=== PATIENT | male | born 1940 | race Caucasian/White ===

== ENCOUNTER 2016-07-16 08:13 | Day surgery (SDC) | payer MEDICARE ==
--- NOTE | 2016-07-09 14:54 | HISTORY AND PHYSICAL E ---
History and Physical NAME: VITOR WILKINSON : 1940 AGE: 76Y ADMITTED: 07/16/2016 ROOM: CHIEF COMPLAINT: Admitted or colonoscopy. HISTORY: Patient known to me since 2003. The patient did have polypectomy 2003 and the polyps were adenoma. At this time, the patient for colon screening. He does have history of severe diverticulosis. I did him 2010 and he did have sessile polyp transverse colon resection. This came back adenoma. The patient's referring physician is Dr. Gilbert. Again, colonoscopy sessile polyp 0.5 cm resected, severe diverticulosis with history of adenoma polyps. The patient did have diverticulosis sigmoid, descending colon, rectal polyps and transverse colon polypectomy. REVIEW OF SYSTEMS: CARDIAC: Hypertension. ENDOCRINE: Negative. GASTROINTESTINAL: Polyps, adenoma, diverticulosis severe. NEUROPSYCHIATRIC: Negative. FAMILY HISTORY: Father had CA of the lung. Mom old age. PHYSICAL EXAMINATION: GENERAL: Pleasant, alert and oriented in no acute distress. VITAL SIGNS: Blood pressure 110/70, pulse 80, respirations 18, temp 98. HEAD, EYES, EARS, NOSE AND THROAT: Normal. NECK: Neck is supple. LUNGS: Clear. ABDOMEN: Soft. NEUROLOGIC: Exam negative. CONCLUSIONS: 1. Severe diverticulosis. 2. Adenoma polyps. MEDICATIONS: 1. Garlic. 2. Vitamin E. 3. Stool softener. 4. Crestor. 5. Diovan. PLAN: Colon exam on 07/16/2016. DICTATING PHYSICIAN: ALEXA PA M.D. [id number] PHY#: [id number] ID: [id number] JOB#: [id number] ACCT: [id number] cc:ALEXA PA M.D. >
[~2016-07-16 08:13] MED LIST: EPINEPHRINE INJ 1 MG/10 ML DISP.SYRIN ONE; FENTANYL CITRATE INJ/PF 100 MCG/2 ML AMPUL ONE; FLUMAZENIL INJ 0.5 MG/5 ML VIAL IV ONE; GLUCAGON,HUMAN RECOMB 1 MG INJ ONE; GLYCOPYRROLATE INJ 0.4 MG/2 ML VIAL ONE; LIDOCAINE 2% JELLY 30 ML TUBE ONE; MIDAZOLAM 2 MG/2 ML INJ ONE; NALOXONE HCL INJ/PF 0.4 MG/1 ML SDV ONE; ONDANSETRON HCL INJ/PF 4 MG/2 ML SDV ONE; PROMETHAZINE HCL INJ 25 MG/1 ML VIAL ONE
[2016-07-16] MEDS: FENTANYL CITRATE INJ/PF 100 MCG/2 ML AMPUL ONE ×2 (09:24→09:28)
--- NOTE | 2016-07-16 10:05 | DISCHARGE SUMMARY E ---
Discharge Summary NAME: VITOR WILKINSON : 1940 AGE: 76Y ADMITTED: 07/16/2016 DISCHARGED: 07/16/2016 FINAL DIAGNOSES: 1. Rectosigmoid junction polyp, 3 mm, benign, biopsy obtained, awaiting results. 2. Sigmoid and descending colon diverticulosis. HISTORY: A 76-year-old male with history of polyps and severe diverticulosis underwent colonoscopy screening today. He takes aspirin 325 mg, Crestor, Diovan and fish oil. Today's colonoscopy shows no cancer, severe diverticulosis. DISCHARGE PLAN: Awaiting biopsy. Hold aspirin and nonsteroidal for 5 days. Awaiting biopsy results. Consider follow-up colonoscopy in 10 years. DICTATING PHYSICIAN: ALEXA PA M.D. [id number] PHY#: [id number] ID: [id number] JOB#: [id number] ACCT: [id number] cc:ALEXA PA M.D., SWETANG M.D. >
--- NOTE | 2016-07-16 10:33 | OPERATIVE REPORT E ---
Operative Report NAME: VITOR WILKINSON : 1940 AGE: 76Y DATE OF SURGERY: 07/16/2016 ROOM: PREOPERATIVE DIAGNOSES: 1. COLON SCREENING. 2. HISTORY OF ADENOMATOUS POLYPS. 3. DIVERTICULOSIS. OPERATION: Colonoscopy to the cecum. SURGEON: ALEXA PA M.D. ANESTHESIA: Versed 2, fentanyl 50. TISSUE REMOVED OR ALTERED: Biopsy, rectosigmoid junction polyp - 2 mm to 3 mm in size, benign looking polyp, rectosigmoid. FINDINGS: 1. Small 3 mm polyp, rectosigmoid junction. 2. Mild external hemorrhoids. 3. Severe diverticulosis, sigmoid descending colon, transverse colon. DESCRIPTION: RECTAL EXAM: Mild external hemorrhoids. RECTOSIGMOID: Shows 2 mm polyp; removed by biopsy. SIGMOID DESCENDING COLON: Diverticulosis, severe. TRANSVERSE COLON: Diverticulosis. ASCENDING COLON: Normal. CECUM: Normal. Scope withdrawn cecum, ascending, transverse, descending, sigmoid, all the way to the rectum. CONCLUSION: Small polyp, rectosigmoid junction; awaiting biopsy. PLAN: Consideration followup colonoscopy after 10 years. DICTATING PHYSICIAN: ALEXA PA M.D. [id number] PHY#: [id number] ID: [id number] JOB#: [id number] ACCT: [id number] cc:ALEXA PA M.D., SWETANG M.D. >
[2016-07-16 10:36] VITALS: BP 130/70
== END 2016-07-16 10:40 | disposition home or self-care (01) ==
LOC: END 08:13
PROVIDERS: ATTEND Specialist
PROC: 0DBP8ZX Excision of Rectum, Via Natural or Artificial Opening Endoscopic, Diagnostic (ICD-10-PCS; principal; 2016-07-16 09:00)
DX: K57.30 Diverticulosis of large intestine without perforation or abscess without bleeding (principal); D12.7 Benign neoplasm of rectosigmoid junction; K64.4 Residual hemorrhoidal skin tags; I10 Essential (primary) hypertension; Z79.899 Other long term (current) drug therapy
CPT/HCPCS: 45380; 88305 ×2; J2250; J3010; J1610; J0171; J2310; J2405; J2550; J3490

== ENCOUNTER → 2016-09-10 | Outpatient (CLI) | payer MEDICARE | LOC: SP 09:55 | PROVIDERS: ATTEND Family Medicine | DX: I65.29 Occlusion and stenosis of unspecified carotid artery (principal) | CPT/HCPCS: 93880 ==

== ENCOUNTER → 2018-10-14 | Outpatient (CLI) | payer MEDICARE ==
--- NOTE | 2018-10-14 12:26 | RADIOLOGY REPORT (SQ) ---
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 Images stored on PACS. LIMITATIONS: None. FINDINGS: RIGHT CAROTID CCA Velocities: Within normal limits. ICA Velocities Peak systolic 0.88 m/s. End diastolic 0.37 m/s. Proximal ICA/CCA peak systolic ratio 1.6. Spectra normal. No significant plaque. LEFT CAROTID CCA Velocities: Within normal limits. ICA Velocities Peak systolic 0.83 m/s. End diastolic 0.31 m/s. Proximal ICA/CCA peak systolic ratio 1.3. Spectra normal. No significant plaque. VERTEBRAL ARTERIES: Antegrade flow. Normal waveforms. SUBCLAVIAN ARTERIES: No finding. OTHER: No other significant finding. IMPRESSION: NO HEMODYNAMICALLY SIGNIFICANT STENOSIS. COMMENT: Quality ID #[id number]: Velocity criteria are extrapolated from the diameter data as defined by t he Society of Radiologists in Ultrasound Consensus Conference. Radiology 2003: 229; 340-346. TECHNICAL DOCUMENTATION: JOB ID: [id number] [email or web address]- All Rights Reserved Reading location - IP/workstation name: [email or web address]
== END ==
LOC: SP 11:41
PROVIDERS: ATTEND Family Medicine
DX: I65.29 Occlusion and stenosis of unspecified carotid artery (principal)
CPT/HCPCS: 93880